=== PATIENT | female | born 1970 | race African-American/Black ===

== ENCOUNTER → 2016-06-29 | Outpatient (CLI) | payer BC ==
--- NOTE | 2016-06-29 09:28 | RAD ---
CT of the chest without contrast, 06/29/2016: History: Cough and mucus Noncontrast scans were obtained as requested. The thoracic aorta is of normal caliber. There are calcified mediastinal and right hilar lymph nodes compatible with old granulomatous disease. No mediastinal adenopathy is seen. There is no evidence of pleural fluid. The lungs are clear. The the bronchi are unremarkable. IMPRESSION: No significant abnormality is detected. PQRS Compliance Statement: One or more of the following individualized dose reduction techniques were utilized for this examination: 1. Automated exposure control 2. Adjustment of the mA and/or kV according to patient size 3. Use of iterative reconstruction technique
--- NOTE | 2016-06-29 13:37 | RAD ---
DATE: 06/29/16 EXAM: DIGITAL SCREEN BILAT W/CAD HISTORY: Routine screening COMPARISON: None available. This is a baseline exam This study was interpreted with the benefit of Computerized Aided Detection (CAD). TECHNIQUE: Routine CC and MLO views of both breasts are obtained. FINDINGS: The breast tissue density is [B ] . Scattered fibroglandular densities are seen bilaterally. There are no dominant suspicious masses, suspicious microcalcifications or evidence of architectural distortion. Skin and nipples are intact IMPRESSION: Negative exam BI-RADS CATEGORY: 1 NEGATIVE RECOMMENDED FOLLOW-UP: 12M 12 MONTH FOLLOW-UP PQRS compliance statement: Patient information was entered into a reminder system with a target due date for the next mammogram. Mammography is a sensitive method for finding small breast cancers, but it does not detect them all and is not a substitute for careful clinical examination. A negative mammogram does not negate a clinically suspicious finding and should not result in delay in biopsying a clinically suspicious abnormality. "Our facility is accredited by the [employer] Mammography Program."
== END | disposition home or self-care (01) ==
LOC: CT 07:10
PROVIDERS: ATTEND Nurse Practitioner Women's Health
DX: Z12.31 Encounter for screening mammogram for malignant neoplasm of breast (principal); J98.4 Other disorders of lung
CPT/HCPCS: 71250; G0202; 77067